=== PATIENT | female | born 1975 | race Caucasian/White ===

== ENCOUNTER 2021-04-29 07:24 | Inpatient (IN) | payer OTHER ==
[~2021-04-29 07:24] MED LIST: Dexamethasone 4 MG/ML SDV ONE; Glycopyrrolate 0.2 MG/ML 5 ML MDV ONE; Neostigmine Methylsulfate 1 MG/ML 5 ML Syringe ONE; Ondansetron 4 MG/2 ML SDV ONE; Propofol 200 MG/20 ML SDV ONE; Rocuronium 50 MG/5 ML Vial ONE; Succinylcholine 200 MG/10 ML MDV ONE; cefOXitin 2 GM Vial ONE; fentaNYL 250 MCG/5 ML SDV ONE
[2021-04-29] MEDS ORDERED: Celecoxib 200 MG Cap PO ONE (07:45)
[2021-04-29] MEDS ORDERED: Scopolamine 1.5 MG Transdermal Patch TOP SCH (07:45)
[2021-04-29] MEDS ORDERED: Acetaminophen 500 MG Tab PO ONE (07:45)
[2021-04-29] MEDS ORDERED: Dextrose 5%-Lactated Ringers 1,000 ML IV SCH (08:00)
[2021-04-29] MEDS ORDERED: Albuterol/Ipratropium 3.0-0.5 MG/3 ML Neb Soln NEB ONE (08:30)
[2021-04-29] MEDS ORDERED: cefOXitin 2 GM in Sodium Chloride 0.9% 50 ML IV ONE (09:15)
[2021-04-29] MEDS ORDERED: Ketamine 50 MG in Sodium Chloride 0.9% 49.5 ML IV SCH (09:30)
[2021-04-29] MEDS ORDERED: Magnesium Sulfate 4.5 GM in Sodium Chloride 0.9% 100 ML IV SCH (09:30)
[2021-04-29] MEDS ORDERED: Ketamine 500 MG/5 ML MDV IV SCH (09:30)
[2021-04-29] MEDS ORDERED: fentaNYL 250 MCG/5 ML SDV ONE (09:56)
[2021-04-29] MEDS ORDERED: Labetalol 20 MG/4 ML Syringe ONE (11:04)
[2021-04-29] MEDS ORDERED: Ondansetron 4 MG/2 ML SDV IVPUSH ONE (11:38)
[2021-04-29] MEDS ORDERED: fentaNYL 100 MCG/2 ML SDV IVPUSH ONE (11:39)
[2021-04-29] MEDS ORDERED: hydrOXYzine HCL 100 MG/2 ML SDV IM ONE (11:39)
[2021-04-29] MEDS ORDERED: Cyclobenzaprine 10 MG Tab PO PRN (12:55)
[2021-04-29] MEDS ORDERED: Albuterol/Ipratropium 3.0-0.5 MG/3 ML Neb Soln INH PRN (12:56)
[2021-04-29] MEDS ORDERED: HYDROmorphone 0.5 MG/0.5 ML Syringe IVPUSH PRN (13:00)
[2021-04-29] MEDS ORDERED: HYDROmorphone 1 MG/ML Syringe IV PRN (13:00)
[2021-04-29] MEDS ORDERED: Acetaminophen 500 MG Tab PO PRN (13:00)
[2021-04-29] MEDS ORDERED: traMADol 50 MG Tab PO PRN (13:00)
[2021-04-29] MEDS ORDERED: Calcium Gluconate 10% 1 GM/10 ML SDV IVPUSH PRN (13:00)
[2021-04-29] MEDS ORDERED: diphenhydrAMINE 50 MG/ML SDV IVPUSH PRN (13:00)
[2021-04-29] MEDS ORDERED: Ondansetron 4 MG/2 ML SDV IVPUSH PRN (13:00)
[2021-04-29] MEDS ORDERED: oxyCODONE 5 MG Tab PO PRN (13:00)
[2021-04-29] MEDS ORDERED: Labetalol 20 MG/4 ML Syringe IVPUSH PRN (13:00)
[2021-04-29] MEDS ORDERED: Metoclopramide 10 MG/2 ML SDV IVPUSH PRN (13:00)
[2021-04-29] MEDS: Acetaminophen 500 MG Tab PO SCH ×2 (13:55→21:33)
[2021-04-29] MEDS: Pantoprazole 40 MG Vial IVPUSH SCH (13:58)
[2021-04-29] MEDS: Dextrose 5%-Lactated Ringers 1,000 ML IV SCH ×2 (14:21→23:47)
[2021-04-29] MEDS ORDERED: MVI, Adult with Vitamin K 10 ML, Thiamine 200 MG, Zinc/Copper/Manganese/Selenium 1 ML i... IV SCH ×4 (16:00)
[2021-04-29] MEDS: cefOXitin 2 GM in Sodium Chloride 0.9% 50 ML IV SCH ×2 (16:03→21:33)
[2021-04-29] MEDS: Heparin Sodium 5,000 Units/ML Vial SUBCUT SCH (20:15)
[2021-04-29] MEDS: hydrOXYzine HCL 100 MG/2 ML SDV IM PRN (22:52)
[2021-04-30] MEDS: hydrOXYzine HCL 100 MG/2 ML SDV IM PRN (03:26)
[2021-04-30] MEDS: cefOXitin 2 GM in Sodium Chloride 0.9% 50 ML IV SCH ×4 (03:28→22:27)
[2021-04-30] MEDS ORDERED: Iopamidol 612 MG/ML 50 ML SDV PO STA (03:42)
[2021-04-30] MEDS: Acetaminophen 500 MG Tab PO SCH ×3 (05:45→22:27)
[2021-04-30] MEDS ORDERED: Tamsulosin 0.4 MG Cap.ER PO ONE (06:36)
[2021-04-30] MEDS ORDERED: Ondansetron 4 MG Tab.DIS PO PRN (07:03)
[2021-04-30] MEDS ORDERED: hydrOXYzine HCl 25 MG Tab PO PRN (07:04)
[2021-04-30] MEDS ORDERED: Acetaminophen 500 MG Tab PO ONE (07:45)
--- NOTE | 2021-04-30 08:08 | PN ---
DATE OF SERVICE: 04/30/2021 SUBJECTIVE: Betsy is postop day #1. Upper GI was normal. Oral intake 690, output 3625. MARNI drain put out 70 mL of a serosanguineous drainage. Pain has been controlled with energy protocol. She was unable to void last night, a Montoya catheter was put in and urine output adequate. Remainder of review of systems negative for any pertinent positives and negatives. OBJECTIVE: GENERAL: Betsy Diallo is a pleasant 45-year-old female. She is alert and orientated. VITAL SIGNS: TPR is 98.8, 74, 16. Blood pressure 109/59. HEENT: Negative. NECK: Supple. HEART: Regular rate and rhythm. LUNGS: Clear. ABDOMEN: Dressings dry and intact. MARNI drain as above. EXTREMITIES: Without peripheral edema. ASSESSMENT: Laparoscopic Adilene-en-Y gastric bypass surgery, repair of diaphragmatic hernia, and excision of mediastinal lipoma and excision of peritoneal nodule. POSTOPERATIVE DIAGNOSES: 1. Morbid obesity. 2. Diaphragmatic hernia. 3. Mediastinal lipoma. 4. Peritoneal nodule. 5. Date of procedure 04/29/2021. Surgeon: Carlos Kim MD. PLAN: 1. Decrease IV to 100 mL/h. 2. Dressing off, may shower. 3. Atarax 50 mg q.4 hours p.o. p.r.n. pain. 4. Flomax 0.4 mg 1 tablet was given one time now. This patient has a Montoya catheter in and then discontinue Montoya catheter 2 hours after Flomax. 5. Communication order, 3 med cups, 1 every 20 minutes or 3 per hour. 6. We will evaluate p.r.n. or in a.m. Alexandria Granados PA-C /[id number]
[2021-04-30] MEDS: Heparin Sodium 5,000 Units/ML Vial SUBCUT SCH ×2 (08:25→20:57)
[2021-04-30] MEDS: Celecoxib 200 MG Cap PO SCH ×2 (08:26→20:57)
[2021-04-30] MEDS: Loratadine 10 MG Tab.DIS PO SCH (08:27)
[2021-04-30] MEDS: Citalopram 20 MG Tab PO SCH (08:30)
[2021-04-30] MEDS: SCOPOLAMINE PATCH CHECK TOP SCH (08:31)
[2021-04-30] MEDS: Dextrose 5%-Lactated Ringers 1,000 ML IV SCH (08:35)
--- NOTE | 2021-04-30 09:13 | CR ---
UGI Limited HISTORY: Postbariatric surgery FINDINGS: Patient swallowed water-soluble contrast. Upright views of the abdomen show no evidence of extravasation or obstruction. There is a surgical drain in the left upper quadrant. IMPRESSION: Status post bariatric surgery No extravasation or obstruction seen
[2021-04-30] MEDS: Pantoprazole 40 MG Vial IVPUSH SCH (13:09)
--- NOTE | 2021-04-30 14:23 | PCM.EKG ---
#1 Interpretation EKG Date: 04/29/21 Time: 08:08 Rhythm: NSR Rate (Beats/Min): 82 [place]: Normal P-Wave: Present QRS: Normal ST-T: Normal QT: Normal Comparison: NA - No Prior EKG
[2021-04-30] MEDS ORDERED: MVI, Adult with Vitamin K 10 ML, Thiamine 200 MG, Zinc/Copper/Manganese/Selenium 1 ML i... IV SCH ×4 (16:00)
[2021-04-30] MEDS ORDERED: Pantoprazole 40 MG Delayed-Release Granules 1 Packet PO SCH (16:30)
[2021-05-01] MEDS: cefOXitin 2 GM in Sodium Chloride 0.9% 50 ML IV SCH (03:11)
[2021-05-01] MEDS: Dextrose 5%-Lactated Ringers 1,000 ML IV SCH (03:13)
[2021-05-01] MEDS: Acetaminophen 500 MG Tab PO SCH (05:27)
--- NOTE | 2021-05-01 08:05 | DISCH ---
ADMISSION DIAGNOSES: 1. Morbid obesity, body mass index 46.3. 2. Mild asthma. 3. Obstructed sleep apnea. DISCHARGE DIAGNOSES: 1. Laparoscopic Adilene-en-Y gastric bypass surgery. 2. Repair of diaphragmatic hernia. 3. Excision of mediastinal lipoma. 4. Excision of peritoneal nodule. POSTOPERATIVE DIAGNOSES: 1. Morbid obesity. 2. Diaphragmatic hernia. 3. Mediastinal lipoma. 4. Peritoneal nodule. 5. Date of procedure: 04/29/2021. Surgeon: Carlos Kim MD. HISTORY: Betsy Diallo is a pleasant 45-year-old female with longstanding history of morbid obesity and increasing comorbidities. After preoperative evaluation and discussion of possible risks and possible complications, she wishes to proceed with surgical procedure. HOSPITAL COURSE: Betsy had her surgery on 04/29/2021. She had no operative complications. On postoperative day #1, she was started on step 2 gastric bypass diet. Her Montoya catheter was discontinued. Her activity was good. She received dietary instructions. She was able to be discharged to home with no complications on 05/01/2021. PHYSICAL EXAMINATION: GENERAL: Betsy Diallo is a pleasant 45-year-old female. VITAL SIGNS: Height is 6 feet 1 inch, weight is 351 pounds. TPR is 98.6, 86, 14, blood pressure 117/69. HEENT: Negative. NECK: Supple. HEART: Regular rate and rhythm. LUNGS: Clear. ABDOMEN: 4 x 4 over MARNI drain site. Trocar site is healing well. Sutures intact. DISPOSITION: Discharged to home. CONDITION: Stable and improving. FOLLOWUP: Appointment with Alexandria Granados PA-C, on 05/13/2021 at 10 a.m. HOME MEDICATIONS: 1. Zofran ODT 4 mg p.o. q.4 hours p.r.n. nausea #30. 2. Hydroxyzine 50 mg p.o. q.6 hours p.r.n. pain #40. 3. Tylenol 1000 mg every 8 hours scheduled for pain. 4. Celebrex 200 mg p.o. b.i.d. scheduled for 2 weeks. 5. To resume home medication: a. Celexa 40 mg p.o. daily. b. Claritin RediTabs 10 mg p.o. daily scheduled. DIET: Step 2 gastric bypass diet with no cereal until 05/14/2021. To have goal of 65 g of protein in 64 ounces of fluid. ACTIVITY: Walk 6 times daily. Shower/bathing: May shower. Keep operative site clean and dry. DISCHARGE INSTRUCTIONS: Wear abdominal binder for 2 weeks if tolerated. Notify provider if any fever, increased pain, swelling, redness, drainage, nausea, or vomiting. Use incentive spirometer 10 times every hour while awake for 1 week. /[id number]
[2021-05-01] MEDS: Citalopram 20 MG Tab PO SCH (08:48)
[2021-05-01] MEDS: Celecoxib 200 MG Cap PO SCH (08:48)
[2021-05-01] MEDS: Loratadine 10 MG Tab.DIS PO SCH (08:49)
[2021-05-01] MEDS: Heparin Sodium 5,000 Units/ML Vial SUBCUT SCH (08:49)
[2021-05-01] MEDS ORDERED: Cyanocobalamin (Vitamin B12) 1,000 MCG/ML SDV IM ONE (09:00)
[2021-05-01] MEDS: SCOPOLAMINE PATCH CHECK TOP SCH (09:15)
--- NOTE | 2021-05-13 13:13 | OR ---
DATE OF PROCEDURE: 04/29/2021 SURGEON: Carlos Kim MD PREOPERATIVE DIAGNOSIS: Morbid obesity. POSTOPERATIVE DIAGNOSES: 1. Morbid obesity. 2. Marked hepatomegaly. 3. Paraesophageal diaphragmatic hernia. 4. Mediastinal lipoma. 5. Peritoneal nodule overlying the peritoneal surface of mid small bowel. OPERATIVE PROCEDURE: 1. Laparoscopic Adilene-en-Y gastric bypass with long limb gastroenterostomy (29500). 2. Alexsander-Cut needle liver biopsy (06065). 3. Repair of paraesophageal diaphragmatic hernia (69298). 4. Excision of mediastinal lipoma (11744). 5. Excision of peritoneal nodule overlying the mid small bowel (91073). ANESTHESIA: General. RECOVERY SPECIALIST: Alexandria Granados PA-C. INDICATIONS FOR PROCEDURE: This 45-year-old female presenting with longstanding morbid obesity and increasingly significant comorbidities. After preoperative evaluation and discussion, she wished to proceed with a gastric bypass procedure. Potential risks including bleeding, infection, leaks from various GI tract closures, problems with bowel obstruction over time as well as possibility of cardiopulmonary, septic, or hemorrhagic complications leading to were all discussed, and the patient wishes to proceed. DETAILS OF PROCEDURE: The patient was taken to the operating room. After general endotracheal anesthesia was induced, she was placed in a lithotomy position and the abdomen prepped and draped. At 15 cm inferior and 5 cm left of the xiphoid process a transverse incision was made and the peritoneal cavity entered under direct vision with an Optiview trocar and inflated to 15 mmHg pressure with CO2. Laparoscope was reinserted. No underlying trocar insertion site injuries were seen. Following this, bilateral transversus abdominis plane blocks were placed and 5 additional trocars were placed across the upper mid abdomen. The liver was noted to be markedly enlarged and fatty infiltrated. Alexsander-Cut needle biopsy was obtained from the left lobe of liver. Minimal bleeding from the biopsy sites was controlled with electrocautery. The liver was then retracted anteriorly and the small bowel was identified at the ligament of Treitz. The omentum was divided in the midline up to the level of the transverse colon with a Harmonic Scalpel. The small bowel was then traced out 125 cm distal to that point, where it was divided with a DU stapler. Small bowel was then traced out additional 175 cm. At the midportion of this area, a roughly 2 cm elongated peritoneal implant was identified. This was then excised off the small bowel surface and sent as a separate specimen. At the point of previously designated, [id number] enteroenterostomy was accomplished with internal firing of the Endo-DU 60 mm stapler. Common opening was then closed transversely with the same stapler and the angles anastomosed and mesenteric defect approximated with some 0 Ethibond stitch along with 4 mL of fibrin sealant. Divided end of Adilene limb was then from the mesentery for a few centimeters, which allowed an antecolic position of the Adilene limb up to the level of gastroesophageal junction without tension. The liver was retracted anteriorly and the patient was noted to have moderate-sized paraesophageal diaphragmatic hernia containing some prolapsed perigastric fat, gastric fundus, and a tongue of omentum. The hernia was reduced at this point and the peritoneum overlying incised and reflected downward. During the course of this dissection, mediastinal lipoma was encountered and this was excised and sent as a separate specimen. An anterior repair of the diaphragmatic hernia was then accomplished with 0 Ethibond sutures reinforced with PTFE pledgets. The gastrointestinal balloon catheter was inflated to 15 mL and pulled up snugly against the EG junction. The gastric wall over the apex of the balloon was then marked with electrocautery and balloon catheter was deflated and pulled up into the esophagus. The lesser omental tissue adjacent to the gastric cardia was incised allowing dissection behind the stomach at that level. Pouch formation was initiated with transverse firing of the DU stapler at the level of the cauterized sherrie in the gastric cardia and then completed with additional firings of DU stapler up to and through the angle of His. Upon completion of the pouch, both staple lines were noted to be intact. The anvil of a 25 mm EEA stapler was attached to Supply sump type tube. The latter was brought down through the mouth and taken out through a small opening in the gastric pouch allowing the anvil likewise to be pulled down to within the gastric pouch. The divided end of the Adilene limb was opened. The main body of the EEA stapler was passed several centimeters into the lumen of small bowel, brought up the anvil, and united with it thus creating the gastrojejunostomy. Upon removal of the stapler, double donuts of mucosa were noted within it. Small bowel was closed off with a vascular staple line. Gastrojejunostomy was reinforced with some 3-0 Vicryl seromuscular stitch along with fibrin sealant. Leak test was accomplished with injection of 120 mL of air in the gastric pouch while it was submerged with cefoxitin-containing saline solution. No leaks were identified. A single Mainor-Barker drain was taken out through the left lateral trocar site and positioned adjacent to the gastrojejunostomy from there up into the splenic fossa. The trocars were then removed. The peritoneal cavity was deflated. Incisions were closed with some 4-0 Vicryl skin stitch, which were also used to fix the drain. Dressing was applied. The patient was taken to the recovery room in satisfactory condition. Physician retail event and sales assistant, Alexandria Granados, played an essential role in assisting in this case, helping to position the patient, retract structures as needed, as well as suturing and cutting sutures when indicated. Her presence improved patient safety and decreased operative time. Carlos Kim MD /[id number]
== END 2021-05-01 09:18 | disposition home or self-care (01) | DRG 621 ==
LOC: JP.MS 07:24 → JP.SDS 07:24 → EDSTATUS 11:15 → JP.MS 12:00
PROVIDERS: ADMIT Surgery; ATTEND Surgery
PROC: 0D164ZA Bypass Stomach to Jejunum, Percutaneous Endoscopic Approach (ICD-10-PCS; principal; 2021-04-29)
PROC: 0FB24ZX Excision of Left Lobe Liver, Percutaneous Endoscopic Approach, Diagnostic (ICD-10-PCS; 2021-04-29)
PROC: 0BQT4ZZ Repair Diaphragm, Percutaneous Endoscopic Approach (ICD-10-PCS; 2021-04-29)
PROC: 0DBW4ZZ Excision of Peritoneum, Percutaneous Endoscopic Approach (ICD-10-PCS; 2021-04-29)
PROC: 0JB63ZZ Excision of Chest Subcutaneous Tissue and Fascia, Percutaneous Approach (ICD-10-PCS; 2021-04-29)
DX: E66.01 Morbid (severe) obesity due to excess calories (principal); Z68.41 Body mass index [BMI] 40.0-44.9, adult; J45.909 Unspecified asthma, uncomplicated; G47.33 Obstructive sleep apnea (adult) (pediatric); K44.9 Diaphragmatic hernia without obstruction or gangrene; D17.1 Benign lipomatous neoplasm of skin and subcutaneous tissue of trunk; K66.8 Other specified disorders of peritoneum; F32.9 Major depressive disorder, single episode, unspecified; E03.9 Hypothyroidism, unspecified; Z98.890 Other specified postprocedural states; Z88.1 Allergy status to other antibiotic agents; Z88.8 Allergy status to other drugs, medicaments and biological substances
CPT/HCPCS: 36415; 51702; 74240; 74240-26; 82947; 84703; 86850; 86900; 86901; 88304; 88305; 88307; 88313; 93005; 94762; A9270-GY; C9113; J0171; J0330; J0694; J1100; J1644; J2405; J2704; J2710; J2795; J3010; J3410; J3411; J3420; J3475; J3490; J7050; J7121; Q9967